=== PATIENT | male | born 1955 | race Caucasian/White ===

== ENCOUNTER 2017-10-05 12:02 | Emergency (ER) | payer BC, OTHER ==
--- NOTE | 2017-10-05 12:12 | EDM.PDOC ---
ED HPI GENERAL MEDICAL PROBLEM - General Stated Complaint: THUMB INJURY Time Seen by Provider: 10/05/17 12:02 Source of Information: Reports: Patient, EMS, Other (coworker) History Limitations: Reports: No Limitations - History of Present Illness INITIAL COMMENTS - FREE TEXT/NARRATIVE: 62 y.o.w.m came to the ed by EMS after he smashed his right thumb in between 2 metals at work and fainted. His BP at the sceen was 86/56. Pt walked to the ed. His BP was then 146/86 pulse was 79 Temp was 35.6. Pt denied dizziness or light headedness or any other acute medical issues. He does not take any meds. Onset: Today Onset Date: 10/05/17 Onset Time: 11:00 Duration: Minutes: Location: Reports: Upper Extremity, Right (right thumb) Quality: Reports: Ache, Burning, Dull Severity: Mild Improves with: Reports: Rest Worsens with: Reports: Movement Context: Reports: Trauma (at work, smashed r thumb between two metals) Right Hand Pain Score (Numeric/FACES): 2 - Related Data Allergies Allergy/AdvReac Type Severity Reaction Status Date / Time No Known Allergies Allergy Verified 10/05/17 12:11 Home Meds: Home Meds Amoxicillin/Potassium Clav [Augmentin 875-125 Tablet] 1 each PO BID #20 tablet 10/05/17 [Rx] Review of Systems - Review of Systems Review Of Systems: See Below Constitutional: Reports: No Symptoms Eyes: Reports: No Symptoms Ears: Reports: No Symptoms Nose: Reports: No Symptoms Mouth/Throat: Reports: No Symptoms Respiratory: Reports: No Symptoms Cardiovascular: Reports: No Symptoms GI/Abdominal: Reports: No Symptoms Genitourinary: Reports: No Symptoms Musculoskeletal: Reports: No Symptoms Skin: Reports: Wound (right thumb) Neurological: Reports: No Symptoms Psychiatric: Reports: No Symptoms ED EXAM, GENERAL - Physical Exam Exam: See Below Exam Limited By: No Limitations General Appearance: Alert, WD/WN, Mild Distress Eye Exam: Bilateral Eye: Normal Inspection Ears: Normal External Exam Ear Exam: Bilateral Ear: Auricle Normal Nose: Normal Inspection, Normal Mucosa Throat/Mouth: Normal Inspection, Normal Lips Head: Atraumatic, Normocephalic Neck: Normal Inspection, Supple, Non-Tender Respiratory/Chest: No Respiratory Distress, Lungs Clear Cardiovascular: Normal Peripheral Pulses, Regular Rate, Rhythm Peripheral Pulses: 1+: Radial (R) GI/Abdominal: Normal Bowel Sounds, Soft, Non-Tender (Male) Exam: Deferred Rectal (Males) Exam: Deferred Back Exam: Normal Inspection Extremities: Limited Range of Motion (right thumb due to pain) Neurological: Alert, Oriented, CN II-XII Intact, Normal Cognition, Normal Gait, No Motor/Sensory Deficits Psychiatric: Normal Affect, Normal Mood Skin Exam: Warm, Dry, Intact, Normal Color Lymphatic: No Adenopathy ED TRAUMA EXTREMITY PROCEDURES - Laceration/Wound Repair Right Finger Lac/Wound Length In cm: 2 (r thumb, dorsal aspect) Appearance: Subcutaneous, Irregular, Mildly Contaminated Distal NVT: Neuro & Vascular Intact, No Tendon Injury Anesthetic Type: Local Local Anesthesia - Bupivicaine (Marcaine): 0.5% Plain Local Anesthetic Volume: 3cc Skin Prep: Providone-Iodine (Betadine) Saline Irrigation (cc's): 5 Exploration/Debridement/Repair: Wound Explored, In a Bloodless Field, Explored to Base, Minimal Debridement Closed With: Sutures Suture Size: 4-0 Suture Type: Interrupted, Other (ethilon) Tetanus Status Addressed: Other (UTD 2016) Complications: No Course - Vital Signs Text/Narrative:: 62 y.o.w.m came to the ed by EMS after he smashed his right thumb in between 2 metals at work and fainted. His [place] [facility] 86/56. Pt walked to the ed. His BP was then 146/86 pulse was 79 Temp was 35.6. Pt denied dizziness or light headedness or any other acute medical issues. He does not take any meds. PE: Laceration R thumb, swollen, painfull to palp Procedure: please see note above Imaging: Comminuted fracture right thumb, open Impression: Laceration right thumb, comminuted Fx right thumb middle phalanx, open Tx: wound repair, Abx, wound care, splinting Reexam: Improved Plan: D/C with instructions Last Recorded V/S: Last Vital Signs Temp 35.5 C 10/05/17 12:21 Pulse 79 10/05/17 12:21 Resp 16 10/05/17 12:21 BP 141/83 H 10/05/17 12:21 Pulse Ox 100 10/05/17 12:21 - Orders/Labs/Meds Orders: Active Orders 24 hr Category Date Time Status Fingers Thumb Rt F5 [CR] Stat Exams 10/05/17 12:13 Taken Meds: Medications Discontinued Medications Generic Name Dose Route Start Last Admin Trade Name Edgardo PRN Reason Stop Dose Admin Amoxicillin/Clavulanate Potassium 1 tab 10/05/17 13:20 10/05/17 13:36 Augmentin 875 Mg/125 Mg PO 10/05/17 13:21 1 tab ONETIME ONE Administration Departure - Departure Time of Disposition: 13:23 Disposition: Home, Self-Care 01 Condition: Good Clinical Impression: Comminuted fracture, Laceration - Discharge Information Prescriptions: Amoxicillin/Potassium Clav [Augmentin 875-125 Tablet] 1 each PO BID #20 tablet Referrals: PCP,Unknown [Ordering Only Provider] - Forms: ED Return to Work/School Form Additional Instructions: Please follow up with an orthopedic hand surgeon as soon as possible, wear the splint right thumb, Neosporine ointment to wound twice daily, Augmentin twice daily for 10 days. Wound check in 2 days, please come back to the ed if your symptoms get worse acutely. - My Orders Last 24 Hours: My Active Orders 10/05/17 12:13 Fingers Thumb Rt F5 [CR] Stat - Assessment/Plan Last 24 Hours: My Active Orders 10/05/17 12:13 Fingers Thumb Rt F5 [CR] Stat
[2017-10-05] MEDS ORDERED: Amoxicillin/Clavulanate K 875-125 MG Tab PO ONE (13:20)
--- NOTE | 2017-10-07 10:48 | CR ---
INDICATION: Thumb pinched in pinch roller. RIGHT THUMB: Three views of the right thumb revealed a severely comminuted fracture through the proximal phalanx extending from the distal portion of the proximal metaphysis through the proximal portion of the distal metaphysis. Fracture fragments are slightly angulated and offset, with overall position and alignment appearing adequate to moderately deformed. Degenerative changes of moderate degree are also noted at the interphalangeal joint of the thumb and the DIP joints of the second and third digits. IMPRESSION: Severely comminuted fracture of the proximal phalanx of the thumb with overlying soft tissue injury and a moderate degree of deformity. MTDD
== END 2017-10-05 13:39 | disposition home or self-care (01) ==
LOC: FB.ED 12:02
DX: S62.511A Displaced fracture of proximal phalanx of right thumb, initial encounter for closed fracture (principal); W23.0XXA Caught, crushed, jammed, or pinched between moving objects, initial encounter
CPT/HCPCS: 12001; 73140; 99000; 99283; A9270

== ENCOUNTER 2018-01-15 07:32 | Day surgery (SDC) | payer BC, OTHER ==
[2018-01-15] MEDS ORDERED: Lactated Ringers 1,000 ML IV SCH (07:45)
[2018-01-15] MEDS ORDERED: Propofol 200 MG/20 ML SDV IV ONE (09:20)
[2018-01-15] MEDS ORDERED: Midazolam 1 MG/ML 2 ML SDV IV ONE (09:20)
[2018-01-15] MEDS ORDERED: Simethicone Drops 40 MG/0.6 ML 30 ML Bottle ONE (09:31)
--- NOTE | 2018-01-15 09:55 | PCM.OPNOTE ---
- General Post-Op/Procedure Note Date of Surgery/Procedure: 01/15/18 Operative Procedure(s): c scope with bx Findings: descending colon polyp sigmoid colon polyp rectal polyps x3 Pre Op Diagnosis: + FIT Post-Op Diagnosis: descending colon polyp. sigmoid colon polyp. rectal polyps x3 Anesthesia Technique: MAC Primary Surgeon: Wilfredo Arboleda Anesthesia Provider: Chadd Larios Pathology: descending colon polyp sigmoid colon polyp rectal polyps x3 Complications: None Condition: Good Free Text/Narrative:: see dictation
--- NOTE | 2018-01-15 14:48 | OR ---
DATE OF OPERATION: 01/15/2018 SURGEON: Wilfredo Arboleda MD PROCEDURES PERFORMED: Colonoscopy with hot loop and cold forceps biopsy. PREOPERATIVE DIAGNOSIS: Positive FIT. POSTOPERATIVE DIAGNOSES: Descending colon polyp, sigmoid colon polyp, and rectal polyp x3. INDICATIONS FOR PROCEDURE: Mr. Lawson is a 62-year-old white male who had a positive fecal immunochemical test result. He was offered and accepted a colonoscopy. DESCRIPTION OF PROCEDURE: After an excellent IV sedation was administered, digital rectal exam was performed. No marked abnormality was noted. Flexible colonoscope was inserted and advanced to the cecum without difficulty. The prep was excellent. The following findings were noted. Ascending colon, unremarkable. Transverse colon, unremarkable. Descending colon, unremarkable. Polypoid lesion biopsied with the hot loop snare and sent for permanent. Sigmoid polypoid lesion, biopsied with the hot loop snare and sent for permanent. Rectum, 3 polyps, 2 of which were biopsied with hot loop snare and retrieved and 1 was biopsied with cold forceps. All submitted in one container. The colon was deflated, and the scope was removed. The patient tolerated the procedure well and was taken to Recovery in a good condition. /[id number] /MODL
== END 2018-01-15 11:10 | disposition home or self-care (01) ==
LOC: FB.SDS 07:32
PROVIDERS: ATTEND Surgery
DX: D12.8 Benign neoplasm of rectum (principal); K63.5 Polyp of colon; K62.1 Rectal polyp; J44.9 Chronic obstructive pulmonary disease, unspecified; Z79.899 Other long term (current) drug therapy; F17.210 Nicotine dependence, cigarettes, uncomplicated
CPT/HCPCS: 45380; 45385; 88305; A9270; J2250; J2704; J7120